=== PATIENT | male | born 1990 | race Caucasian/White ===

== ENCOUNTER 2016-12-19 09:21 | Emergency (ER) | payer OTHER ==
[~2016-12-19] VITALS: Ht 185.4 cm; Wt 111.6 kg
[2016-12-19 09:24] VITALS: TEMP 37.1; O2SAT 97; Ht 185.4 cm; Wt 111.6 kg
[2016-12-19] MEDS ORDERED: FLUP10TA PO (09:37)
--- NOTE | 2016-12-19 10:07 | EMERGENCY ROOM VISIT NOTE ---
History Report prepared by Corey: Rosa Malagon Under the Supervision of: Rabia RandolphO. First contact with patient: 09:44 Chief Complaint: SHORTNESS OF BREATH Stated Complaint: SOB Nursing Triage Summary: pt presents via als to room b10. pt is a current 302 from [facility]. pt reports last night he felt short of breath when he laid down and "my heart was racing and i had chills." pt reports hx of pe approx 2 years ago and he stopped taking eloquist approx 1 years ago. at present pt denies any shortness of breath or pain. History of Present Illness The patient is a 26 year old male who presents to the Emergency Room with complaints of intermittent shortness of breath that began last night. He noticed that he was having a difficult time breathing when he was lying flat. His symptoms improved with sitting up. He also experienced chills and reports an intermittent cough. The patient has a history of Factor V Leiden and had a PE two years ago. He was placed on blood thinners at that time, which he took for about a year before he decided to discontinue taking this medication. He did not discuss this with his PCP. He states that his current symptoms do not feel like his previous PE. The patient denies any sick contacts. He denies fevers, rhinorrhea, abdominal pain, nausea, vomiting, diarrhea, urinary symptoms , and leg pain or swelling. He denies any recent falls or injuries. The patient is currently on a 302 at the [facility]. Staff is at bedside. Source of History: patient Onset: last night Position: chest (respiratory) Quality: other (SOB) Timing: intermittent Modifying Factors (Worsening): other (lying flat) Modifying Factors (Relieving): other (sitting up) Associated Symptoms: + cough, No fevers, No nausea, No vomiting, No abdominal pain, No diarrhea, No urinary symptoms Review of Systems See HPI for pertinent positives & negatives. A total of 10 systems reviewed and were otherwise negative. Past Medical & Surgical Medical Problems: (1) Bronchitis (2) Factor V Leiden (3) Pneumonia (4) Pulmonary embolism Family History Blood clots Thromboembolic disease Social History Smoking Status: Current Every Day Smoker Current/Historical Medications Scheduled Fluphenazine Hcl (Prolixin), 10 MG PO BID Allergies Coded Allergies: Sulfa Antibiotics (Unverified Allergy, Unknown, UNKNOWN, 12/19/16) Physical Exam Vital Signs Date Time Temp Pulse Resp B/P (MAP) Pulse Ox O2 Delivery O2 Flow Rate FiO2 12/19/16 14:21 80 18 129/76 94 Room Air 12/19/16 13:17 97 12/19/16 13:01 85 18 121/86 94 Room Air 12/19/16 11:32 89 18 128/77 96 Room Air 12/19/16 10:22 85 18 140/84 98 Room Air 12/19/16 09:51 89 12/19/16 09:24 97 Room Air 12/19/16 09:24 37.1 89 18 131/85 97 Room Air 12/19/16 09:24 97 Room Air Physical Exam GENERAL: alert, well appearing, well nourished, no distress, non-toxic EYE EXAM: normal conjunctiva, PERRL and EOM's grossly intact OROPHARYNX: no exudate, no erythema, lips, buccal mucosa, and tongue normal and mucous membranes are moist NECK: supple, no nuchal rigidity, no adenopathy, non-tender LUNGS: Clear to auscultation. Normal chest wall mechanics HEART: no murmurs, S1 normal and S2 normal ABDOMEN: abdomen soft, non-tender, normo-active bowel sounds, no masses, no rebound or guarding. BACK: Back is symmetrical on inspection and there is no deformity, no midline tenderness, no CVA tenderness. SKIN: no rashes and no bruising UPPER EXTREMITIES: upper extremities are grossly normal. LOWER EXTREMITIES: No pitting edema. NEURO EXAM: Normal sensorium, cranial nerves II-XII grossly intact, normal speech, no gross weakness of arms, no gross weakness of legs. PSYCH: He has a flat affect. Medical Decision & Procedures ER Provider Diagnostic Interpretation: Radiology results have been interpreted by the radiologist and reviewed by me. CT ANGIOGRAM OF THE CHEST CLINICAL HISTORY: Cough and dyspnea. COMPARISON STUDY: No priors. TECHNIQUE: Following the IV administration of 81 cc of Optiray 320, CT angiogram of the chest was performed from the upper abdomen to the thoracic inlet utilizing the pulmonary embolus protocol. Images are reviewed in the axial, sagittal, and coronal planes. 3-D MIPS images are created and assessed. IV contrast was administered without complication. CT DOSE: 623.16 mGy.cm FINDINGS: Thyroid: Imaged portions of the thyroid gland are normal in size and attenuation. Thoracic aorta: The thoracic aorta is normal in caliber and demonstrates bovine variant arch anatomy. No dissection is seen. Pulmonary vasculature: The pulmonary trunk is normal in caliber. There are no filling defects identified in main, lobar, or segmental pulmonary branches to suggest pulmonary embolus. Heart: The heart is normal in size and configuration, and without pericardial effusion. Lungs and pleural spaces: There are trace pleural effusions. No airspace consolidation is identified. The trachea and central airways Are clear. Mediastinum: There is no mediastinal lymphadenopathy. Dai: Clear. Axillae: There is no axillary lymphadenopathy. Upper abdomen: There is a small hiatal hernia. The liver is steatotic. Skeletal structures: No lytic or blastic bony lesions are seen. IMPRESSION: 1. There is no evidence of pulmonary embolus in the main, lobar, or segmental pulmonary arteries. 2. There are trace pleural effusions. The lungs are otherwise clear. 3. Hepatic steatosis. Electronically signed by: Hari Terrell M.D. 12/19/2016 11:31 AM Dictated Date/Time: 12/19/2016 11:26 AM Laboratory Results 12/19/16 10:15 Red Blood Count 5.01, Mean Corpuscular Volume 89.6, Mean Corpuscular Hemoglobin 32.5, Mean Corpuscular Hemoglobin Concent 36.3, Mean Platelet Volume 9.6, Neutrophils (%) (Auto) 52.4, Lymphocytes (%) (Auto) 35.9, Monocytes (%) (Auto) 9.0, Eosinophils (%) (Auto) 1.7, Basophils (%) (Auto) 0.8, Neutrophils # (Auto) 4.50, Lymphocytes # (Auto) 3.09, Monocytes # (Auto) 0.77, Eosinophils # (Auto) 0.15, Basophils # (Auto) 0.07 12/19/16 10:15 Test 12/19/16 10:15 White Blood Count 8.60 K/uL (4.8-10.8) Red Blood Count 5.01 M/uL (4.7-6.1) Hemoglobin 16.3 g/dL (14.0-18.0) Hematocrit 44.9 % (42-52) Mean Corpuscular Volume 89.6 fL (80-100) Mean Corpuscular Hemoglobin 32.5 pg (25-34) Mean Corpuscular Hemoglobin Concent 36.3 g/dl (32-36) Platelet Count 219 K/uL (130-400) Mean Platelet Volume 9.6 fL (7.4-10.4) Neutrophils (%) (Auto) 52.4 % Lymphocytes (%) (Auto) 35.9 % Monocytes (%) (Auto) 9.0 % Eosinophils (%) (Auto) 1.7 % Basophils (%) (Auto) 0.8 % Neutrophils # (Auto) 4.50 K/uL (1.4-6.5) Lymphocytes # (Auto) 3.09 K/uL (1.2-3.4) Monocytes # (Auto) 0.77 K/uL (0.11-0.59) Eosinophils # (Auto) 0.15 K/uL (0-0.5) Basophils # (Auto) 0.07 K/uL (0-0.2) RDW Standard Deviation 38.2 fL (36.4-46.3) RDW Coefficient of Variation 11.8 % (11.5-14.5) Immature Granulocyte % (Auto) 0.2 % Immature Granulocyte # (Auto) 0.02 K/uL (0.00-0.02) Prothrombin Time 10.1 SECONDS (9.0-12.0) Prothromb Time International Ratio 0.9 (0.9-1.1) Anion Gap 9.0 mmol/L (3-11) Est Creatinine Clear Calc Drug Dose 130.9 ml/min Estimated GFR () 105.3 Estimated GFR (Non- 90.9 BUN/Creatinine Ratio 11.3 (10-20) Calcium Level 9.0 mg/dl (8.5-10.1) Total Bilirubin 0.5 mg/dl (0.2-1) Aspartate Amino Transf (AST/SGOT) 29 U/L (15-37) Alanine Aminotransferase (ALT/SGPT) 100 U/L (12-78) Alkaline Phosphatase 66 U/L (45-117) Troponin I < 0.015 ng/ml (0-0.045) Total Protein 7.2 gm/dl (6.4-8.2) Albumin 4.0 gm/dl (3.4-5.0) Globulin 3.2 gm/dl (2.5-4.0) Albumin/Globulin Ratio 1.3 (0.9-2) Thyroid Stimulating Hormone (TSH) 3.290 uIu/ml (0.300-4.500) Laboratory results per my review. ECG Indication: SOB/dyspnea Rate (beats per minute): 93 Findings: RBBB (appearance), no acute ischemic change, no ectopy, other ( rightward axis, normal intervals) Comparison ECG Date: no prior available ED Course 0944: The patient was evaluated in room B10. A complete history and physical exam was performed. 1216: I reassessed the patient at this time. He is feeling better and resting comfortably. He has had no recurrent symptoms. I discussed the results and treatment plan with the patient. I answered all pertaining questions that he had. He expressed understanding and verbalized agreement. The patient will be discharged back to [facility]. Medical Decision Differential diagnoses includes but is not limited to pneumonia, bronchitis, COPD/Asthma exacerbation, pneumothorax, pulmonary embolism, congestive heart failure, acute coronary syndrome. Medication Reconciliation: I attest that I have personally reviewed the patient' s current medication list. Blood pressure screening: Patient was found to have a slightly elevated blood pressure due to circumstances. I do not believe that the patient requires hypertension monitoring. Pt with hx of PE and Factor V, not currently anticoagulated. No sx to suggest DVT, and no PE found on CT. Pt low risk for ACS and trop negative. No evidence of dissection, tamponade, effusion, infiltrate, CHF. Doubt perf, gi bleed. Pt well appearing, VS stable, normal ambulatory pulse ox, no hypoxia and no WOB noted. Advised close f/u with PCP and reconsideration of anticoagulation. Pt without any recurrent sx here. Discussed sx to watch/ return for, he and staff from [facility] verbalized understanding and were agreeable with plan. HEART score 0 Impression Primary Impression: Dyspnea Additional Impression: Factor V Leiden Scribe Attestation The scribe's documentation has been prepared under my direction and personally reviewed by me in its entirety. I confirm that the note above accurately reflects all work, treatment, procedures, and medical decision making performed by me. Departure Information Dispostion Home / Self-Care Referrals No Doctor, Assigned (PCP) Forms HOME CARE DOCUMENTATION FORM, IMPORTANT VISIT INFORMATION Patient Instructions My [facility] Additional Instructions Please continue regular medications as prescribed. Please monitor for any additional trouble breathing. These discuss with your doctor anticoagulation or blood thinners given your history of factor V Leiden any prior blood clot in your lungs. Please consider restarting a blood thinner. If you develop any recurrent shortness of breath, develop dizziness, fevers, chest pain or pressure , vomiting, or you've any other new concerns, please return the emergency room. Problem Qualifiers Primary Impression: Dyspnea Dyspnea type: shortness of breath Qualified Codes: R06.02 - Shortness of breath
[2016-12-19] MEDS ORDERED: OPTIRAY 320 IV PRN (10:15)
[2016-12-19 10:34] LABS: BASO % 0.8 %; BASO ABS # 0.07 K/uL (0-0.2); COMPLETE YES; EOS % 1.7 %; HEMATOCRIT 44.9 % (42-52); IG% 0.2 %; LYMPH % 35.9 %; LYMPH ABS # 3.09 K/uL (1.2-3.4); MEAN CELL VOLUME 89.6 fL (80-100); MEAN CORPUSCULAR HEMOGLOBIN 32.5 pg (25-34); MEAN CORPUSCULAR HGB CONC 36.3 g/dl (32-36); MEAN PLATELET VOLUME 9.6 fL (7.4-10.4); NEUT % 52.4 %; PLATELET COUNT 219 K/uL (130-400); RED BLOOD COUNT 5.01 M/uL (4.7-6.1)
[2016-12-19 10:41] LABS: INR 0.9 (0.9-1.1); PROTHROMBIN TIME (PATIENT) 10.1 SECONDS (9.0-12.0)
[2016-12-19 10:53] LABS: ALT/SGPT 100 U/L (12-78); BLOOD UREA NITROGEN 12 mg/dl (7-18); BUN/CREATININE RATIO 11.3 (10-20); CARBON DIOXIDE 24 mmol/L (21-32); CHLORIDE 107 mmol/L (98-107); GLUCOSE 122 mg/dl (70-99); POTASSIUM 3.9 mmol/L (3.5-5.1); SODIUM 140 mmol/L (136-145)
[2016-12-19 11:04] LABS: ALB/GLOB RATIO 1.3 (0.9-2); ALKALINE PHOSPHATASE 66 U/L (45-117); AST/SGOT 29 U/L (15-37)
--- NOTE | 2016-12-19 11:32 | DIAGNOSTIC IMAGING REPORT ---
CT ANGIOGRAM OF THE CHEST CLINICAL HISTORY: Cough and dyspnea. COMPARISON STUDY: No priors. TECHNIQUE: Following the IV administration of 81 cc of Optiray 320, CT angiogram of the chest was performed from the upper abdomen to the thoracic inlet utilizing the pulmonary embolus protocol. Images are reviewed in the axial, sagittal, and coronal planes. 3-D MIPS images are created and assessed. IV contrast was administered without complication. CT DOSE: 623.16 mGy.cm FINDINGS: Thyroid: Imaged portions of the thyroid gland are normal in size and attenuation. Thoracic aorta: The thoracic aorta is normal in caliber and demonstrates bovine variant arch anatomy. No dissection is seen. Pulmonary vasculature: The pulmonary trunk is normal in caliber. There are no filling defects identified in main, lobar, or segmental pulmonary branches to suggest pulmonary embolus. Heart: The heart is normal in size and configuration, and without pericardial effusion. Lungs and pleural spaces: There are trace pleural effusions. No airspace consolidation is identified. The trachea and central airways Are clear. Mediastinum: There is no mediastinal lymphadenopathy. Dai: Clear. Axillae: There is no axillary lymphadenopathy. Upper abdomen: There is a small hiatal hernia. The liver is steatotic. Skeletal structures: No lytic or blastic bony lesions are seen. IMPRESSION: 1. There is no evidence of pulmonary embolus in the main, lobar, or segmental pulmonary arteries. 2. There are trace pleural effusions. The lungs are otherwise clear. 3. Hepatic steatosis. Electronically signed by: Hari Terrell M.D. 12/19/2016 11:31 AM Dictated Date/Time: 12/19/2016 11:26 AM
[2016-12-19 14:21] VITALS: BP 129/76; PULSE 80; O2SAT 94
== END 2016-12-19 14:50 | disposition home or self-care (01) ==
LOC: C.EDB 09:24
DX: R06.02 Shortness of breath (principal); D68.51 Activated protein C resistance; R05 Cough; R68.83 Chills (without fever); I45.10 Unspecified right bundle-branch block; Z79.899 Other long term (current) drug therapy; Z86.711 Personal history of pulmonary embolism; Z87.01 Personal history of pneumonia (recurrent); Z87.09 Personal history of other diseases of the respiratory system; Z83.2 Family history of diseases of the blood and blood-forming organs and certain disorders involving the immune mechanism; F17.200 Nicotine dependence, unspecified, uncomplicated